=== PATIENT | male | born 1960 | race Caucasian/White ===

== ENCOUNTER 2018-11-30 11:03 | Emergency (ER) | payer OTHER ==
[~2018-11-30] VITALS: Ht 175.3 cm; Wt 93.0 kg
[~2018-11-30 11:03] MED LIST: ALPRAZOLAM 0.0.25 M1; AMBIEN 10 MG TA10 MG
[2018-11-30 12:09] LABS: BE(vivo) 1.1 mmol/L (-2 to +3); HCO3 21.3 mmol/L (22.0-26.0); PO2 81.2 mmHg (80.0-100.0); pH 7.566 (7.360-7.450); sO2 97.4 % (92.0-98.0)
[2018-11-30 12:14] LABS: BASOPHILS 0.7 % (0.0-2.0); EOSINOPHILS 1.1 % (0.0-3.0); HEMATOCRIT 40.6 % (42.0-52.0); HEMOGLOBIN 14.1 gm/dL (14.0-18.0); MCH 31.1 pg (26.0-34.0); MCHC 34.8 g/dL (28.0-37.0); MCV 89.6 fL (80.0-100.0); MONOCYTES 6.2 % (1.0-8.0); PLATELET COUNT 252 thou/uL (150-400); RBC 4.54 mil/uL (4.50-6.00); RDW 13.5 % (10.5-14.5); WBC 11.1 thou/uL (4.0-11.0)
[2018-11-30 12:30] LABS: ANION GAP 16 mmol/L (7-16); BUN 26 mg/dL (7-18); CALCIUM 10.2 mg/dL (8.5-10.1); CHLORIDE 97 mmol/L (98-107); CO2 23 mmol/L (21-32); CREATININE 1.7 mg/dL (0.7-1.3); GLUCOSE 96 mg/dL (74-106); POTASSIUM 3.3 mmol/L (3.5-5.1); SODIUM 136 mmol/L (136-145)
[2018-11-30 12:38] LABS: ALBUMIN 4.2 g/dL (3.4-5.0); SGOT 39 U/L (15-37); SGPT 42 U/L (30-65); TOTAL BILIRUBIN 2.1 mg/dL (<0.1-1.0); TOTAL PROTEIN 8.7 g/dL (6.4-8.2); TROPONIN-I <0.06 ng/mL (<0.06)
--- NOTE | 2018-11-30 13:24 | EKG ---
[place] [address] [facility] [address] [place] [address] ELECTROCARDIOGRAM REPORT Name: VIRIDIANA SAGASTUMEINDIANA Mckenzie Room #: [id number] Admission: 11/30/18 Attend Phys: Discharge: Date of : 60 Report #: [id number] THIS REPORT FOR: //name// [facility] ED Test Date: 2018-11-30 Test Time: 11:02:20 Pat Name: CURRY SAGASTUME Department: Room: Gender: Contract Specialist: KF : 1960 Requested By: Ran Maradiaga Order Number: [id number] MD: Johan Clancy Measurements Intervals [place] Rate: 114 P: 66 AR: 137 QRS: 39 QRSD: 95 T: 60 QT: 361 QTc: 498 Interpretive Statements Sinus tachycardia Probable left atrial enlargement Compared to ECG 05/13/2010 20:35:44 Sinus rhythm no longer present Electronically Signed On 11-30-2018 13:24:21 CDT by Johan Clancy [email or web address] <ELECTRONICALLY SIGNED> By: Johan Clancy MD 11/30/18 1324 1102 1102 MD EV Hudson
[2018-11-30 15:32] LABS: URINE BLOOD TRACE (Negative); URINE CLARITY CLEAR; URINE COLOR YELLOW; URINE GLUCOSE-RANDOM* NEGATIVE (Negative); URINE KETONES 1+ (Negative); URINE LEUKOCYTES-REFLEX NEGATIVE (Negative); URINE NITRITE-REFLEX NEGATIVE (Negative); URINE PROTEIN (DIPSTICK) 2+ (Negative); URINE SPECIFIC GRAVITY 1.025 (1.005-1.035)
[2018-11-30 15:33] LABS: ICTOTEST (BILI CONFIRMATORY) Negative (Negative); URINE BILIRUBIN NEGATIVE (Negative)
[2018-11-30 15:40] LABS: AMP/METHAMP POSITIVE (Negative); BARBITURATES Negative (Negative); BENZODIAZEPINES Negative (Negative); COCAINE Negative (Negative); METHADONE Negative (Negative); OPIATES Negative (Negative); PCP Negative (Negative)
[2018-11-30 15:54] LABS: BACTERIA-REFLEX 1-9 Few /HPF (None Seen); CASTS None Seen /LPF (None Seen); CRYSTALS None Seen /LPF (None Seen); SQUAMOUS None Seen /LPF (0-3); URINE RBC 0-2 Rare /HPF (0-2); URINE WBC-REFLEX None Seen /HPF (0-5)
[2018-11-30 19:30] VITALS: BP 110/57
== END 2018-11-30 19:30 | disposition home or self-care (01) ==
LOC: ER 11:03
PROVIDERS: Emergency Medicine; Physician Assistant
DX: F15.10 Other stimulant abuse, uncomplicated (principal); R07.89 Other chest pain; R06.4 Hyperventilation; R10.30 Lower abdominal pain, unspecified